=== PATIENT | female | born 1990 | race African-American/Black ===

== ENCOUNTER 2019-04-17 09:14 | Emergency (ER) | payer SELFPAY ==
--- NOTE | 2019-04-17 09:40 | ER Document Report ---
ED Medical Screen (RME) - General Chief Complaint: Head Injury with LOC Stated Complaint: HEAD INJURY/POSSIBLE SEIZURE Time Seen by Provider: 04/17/19 09:36 Mode of Arrival: Ambulatory Information source: Patient Notes: 28-year-old female presented to ED for complaint of history of seizures. She states this morning about an hour ago she had a seizure and fell hitting her head and her left shoulder. She states she ran out of Keppra is why she had a seizure. She does not have any history of any Keppra in the emergency room in the past I have researched that. She does not have her bottle with her. She states she needs an Keppra so she does not have other seizure. I will x-ray the left shoulder and have her examined by another provider Keppra level as well as blood and urine will be completed. I have greeted and performed a rapid initial assessment of this patient. A comprehensive ED assessment and evaluation of the patient, analysis of test results and completion of medical decision making process will be conducted by an additional ED providers. TRAVEL OUTSIDE OF THE [place] IN LAST 30 DAYS: No - Related Data Allergies/Adverse Reactions: erythromycin base [Erythromycin Base] Allergy (Verified 04/17/19 09:30) Home Medications: keppra 500mg BID. iron supplement. B12 injections Past Medical History - Social History Chew tobacco use (# tins/day): No Frequency of alcohol use: Social Drug Abuse: None Family history: CAD, DM, Hypertension, Malignancy Neurological Medical History: Reports: Hx Seizures - distant, no meds, not for years Traumatic Medical History: Reports: Hx Fractures - jaw Past Surgical History: Reports: Hx Section - x2, Hx Oral Surgery - jaw wired shut - Immunizations Immunizations up to date: Yes Hx Diphtheria, Pertussis, Tetanus Vaccination: Yes - 2010
[2019-04-17 10:07] LABS: ABSOLUTE LYMPHOCYTES (AUTO) 1.3 10^3/uL (0.5-4.7); ABSOLUTE MONOCYTES (AUTO) 0.5 10^3/uL (0.1-1.4); ABSOLUTE NEUT (AUTO) 6.4 10^3/uL (1.7-8.2); BASOPHILS % (AUTO) 0.3 % (0-2); EOSINOPHILS % (AUTO) 0.1 % (0-6); HEMATOCRIT 34.6 % (36.0-47.0); HEMOGLOBIN 11.7 g/dL (12.0-15.5); LYMPHOCYTES % (AUTO) 15.9 % (13-45); MEAN CORPUSCULAR HEMOGLOBIN 31.5 pg (27.0-33.4); MEAN CORPUSCULAR HGB CONC 33.9 g/dL (32.0-36.0); MEAN CORPUSCULAR VOLUME 93 fl (80-97); MONOCYTES % (AUTO) 6.5 % (3-13); PLATELET COUNT 314 10^3/uL (150-450); RED BLOOD COUNT 3.72 10^6/uL (3.72-5.28); RED CELL DISTRIBUTION WIDTH 14.2 % (11.5-14.0); SEGMENTED NEUTROPHILS % (AUTO) 77.2 % (42-78); TOTAL CELLS COUNTED % (AUTO) 100 %; WHITE BLOOD COUNT 8.3 10^3/uL (4.0-10.5)
[2019-04-17 10:14] LABS: APPEARANCE,URINE SLIGHTLY-CLOUDY; BILIRUBIN,URINE NEGATIVE (NEGATIVE); COLOR,URINE YELLOW; GLUCOSE, URINE NEGATIVE (NEGATIVE); KETONES,URINE NEGATIVE (NEGATIVE); PROTEIN,URINE NEGATIVE (NEGATIVE); URINE SPECIFIC GRAVITY 1.013; UROBILINOGEN,URINE NEGATIVE mg/dL (<2.0)
[2019-04-17 10:24] LABS: ALKALINE PHOSPHATASE 57 U/L (38-126); ANION GAP 12 (5-19); ASPARTATE AMINO TRANSFERASE 29 U/L (14-36); BILIRUBIN,DIRECT 0.1 mg/dL (0.0-0.4); BILIRUBIN,TOTAL 0.4 mg/dL (0.2-1.3); BLOOD UREA NITROGEN 9 mg/dL (7-20); CALCIUM 10.3 mg/dL (8.4-10.2); CARBON DIOXIDE 26 mmol/L (22-30); CHLORIDE 107 mmol/L (98-107); GLUCOSE 86 mg/dL (75-110); POTASSIUM 4.3 mmol/L (3.6-5.0); TOTAL PROTEIN 8.5 g/dL (6.3-8.2); URINE AMPHETAMINES SCREEN NEGATIVE; URINE BARBITURATES SCREEN NEGATIVE; URINE BENZODIAZEPINES SCREEN NEGATIVE; URINE METHADONE SCREEN NEGATIVE; URINE PHENCYCLIDINE SCREEN NEGATIVE
[2019-04-17 10:26] LABS: URINE COCAINE SCREEN UNCONFIRMED POSITIVE; URINE MARIJUANA (THC) SCREEN UNCONFIRMED POSITIVE
--- NOTE | 2019-04-17 10:30 | ER Document Report ---
ED General - General Mode of Arrival: Ambulatory TRAVEL OUTSIDE OF THE [place] IN LAST 30 DAYS: No - Related Data Home Medications: keppra 500mg BID. iron supplement. B12 injections <FIDELINA SOOD IV - Last Filed: 04/17/19 10:30> <DESIREE APULINO - Last Filed: 04/17/19 12:00> - General Chief Complaint: Head Injury with LOC Stated Complaint: HEAD INJURY/POSSIBLE SEIZURE Time Seen by Provider: 04/17/19 09:36 - Related Data Allergies/Adverse Reactions: erythromycin base [Erythromycin Base] Allergy (Verified 04/17/19 09:30) Past Medical History - General Information source: Patient - Social History Smoking Status: Current Every Day Smoker Chew tobacco use (# tins/day): No Frequency of alcohol use: Social Drug Abuse: None Family History: CAD, DM, Hypertension, Malignancy Patient has suicidal ideation: No Patient has homicidal ideation: No Neurological Medical History: Reports: Hx Seizures - distant, no meds, not for years Traumatic Medical History: Reports: Hx Fractures - jaw Past Surgical History: Reports: Hx Section - x2, Hx Oral Surgery - jaw wired shut - Immunizations Immunizations up to date: Yes Hx Diphtheria, Pertussis, Tetanus Vaccination: Yes - 2010 <FIDELINA SOOD IV - Last Filed: 04/17/19 10:30> Physical Exam - Vital signs Vitals: Temp Pulse BP Pulse Ox 98.9 F 81 132/88 H 100 04/17/19 10:04 04/17/19 10:04 04/17/19 10:04 04/17/19 10:04 Course - Laboratory Result Diagrams: 04/17/19 09:50 04/17/19 09:50 <FIDELINA SOOD IV - Last Filed: 04/17/19 10:30> - Laboratory Result Diagrams: 04/17/19 09:50 04/17/19 09:50 <DESIREE PAULINO - Last Filed: 04/17/19 12:00> - Vital Signs Vital signs: Temp Pulse Resp BP Pulse Ox 98.9 F 81 132/88 H 100 04/17/19 10:04 04/17/19 10:04 04/17/19 10:04 04/17/19 10:04 - Laboratory Laboratory results interpreted by me: 04/17/19 04/17/19 04/17/19 09:50 09:50 09:50 Hgb 11.7 L Hct 34.6 L RDW 14.2 H Calcium 10.3 H Total Protein 8.5 H Leukocyte Esterase Rfl TRACE H Valproic Acid < 10.0 L Discharge <FIDELINA SOOD IV - Last Filed: 04/17/19 10:30> <DESIREE PAULINO - Last Filed: 04/17/19 12:00> - Discharge Clinical Impression: Stress and adjustment reaction, self report of seizure Condition: Fair Disposition: HOME, SELF-CARE Additional Instructions: It is very important that you establish care with a primary care physician locally here since they will be able to refer you to a local neurologist since they will only start medications in someone with verified seizures since it is not a medication without its own risks. To prevent seizures in the meantime it is important you take care of yourself get good rest continue to be social eat well avoid substances and lack of sleep. Referrals: [facility] [Provider Group] - Follow up as needed [facility] ([facility] [Provider Group] - Follow up as needed (If you have insurance you can call this #4 and [facility] doctor to establish a primary care doctor, or use [facility] for low cost healthcare resources.)
--- NOTE | 2019-04-17 11:04 | RADIOLOGY REPORT (SQ) ---
EXAM DESCRIPTION: SHOULDER LEFT 2 OR MORE VIEWS COMPLETED DATE/TIME: 04/17/2019 10:49 am REASON FOR STUDY: fell landed on shoulder COMPARISON: None. NUMBER OF VIEWS: Three views. TECHNIQUE: Internal rotation, external rotation, and Y view images acquired of the left shoulder. LIMITATIONS: None. FINDINGS: MINERALIZATION: Normal. BONES: No acute fracture. No worrisome bone lesions. JOINTS: No dislocation. VISUALIZED LUNGS AND RIBS: No pneumothorax. No rib fracture. SOFT TISSUES: No radiopaque foreign body. OTHER: No other significant finding. IMPRESSION: NEGATIVE STUDY OF THE LEFT SHOULDER. NO RADIOGRAPHIC EVIDENCE OF ACUTE INJURY. TECHNICAL DOCUMENTATION: JOB ID: [id number] [employer]- All Rights Reserved Reading location - IP/workstation name: [email or web address]
[2019-04-17] MEDS ORDERED: ACETAMINOPHEN 325 MG TABLET PO ONE (12:13)
[2019-04-17] MEDS ORDERED: ACETAMINOPHEN 325 MG TABLET ONE (12:14)
[2019-04-17 12:19] VITALS: BP 121/63
== END 2019-04-17 12:19 | disposition home or self-care (01) ==
LOC: ER 09:14
DX: F43.20 Adjustment disorder, unspecified (principal); G40.909 Epilepsy, unspecified, not intractable, without status epilepticus; F17.200 Nicotine dependence, unspecified, uncomplicated; Z88.3 Allergy status to other anti-infective agents
CPT/HCPCS: 36415; 80053; 80164; 80307; 81001; 82962; 84703; 85025; 99284

== ENCOUNTER 2019-05-30 11:12 | Emergency (ER) | payer SELFPAY ==
[2019-05-30] MEDS ORDERED: METOCLOPRAMIDE HCL INJ/PF 10 MG/2 ML SDV IV ONE (11:56)
[2019-05-30] MEDS ORDERED: NORMAL SALINE 1000 ML 1,000 ML IV ONE (11:56)
--- NOTE | 2019-05-30 11:59 | ER Document Report ---
ED Medical Screen (RME) - General Chief Complaint: Vaginal Bleeding Stated Complaint: VOMITING,VAGINAL BLEEDING Time Seen by Provider: 05/30/19 11:52 Notes: Patient is a 28-year-old female G5, P4, who presents emergency department with a chief complaint of vaginal bleeding. She states that there was only a small amount. Patient also states that she has been vomiting and she thought she might have seen blood in her vomit. Patient's last menstrual cycle was March 31 and she is . Exam: Soft, mildly tender mid lower abdomen. I have greeted and performed a rapid initial assessment of this patient. A comprehensive ED assessment and evaluation of the patient, analysis of test results and completion of medical decision making process will be conducted by an additional ED providers. TRAVEL OUTSIDE OF THE [place] IN LAST 30 DAYS: No - Related Data Allergies/Adverse Reactions: erythromycin base [Erythromycin Base] Allergy (Verified 04/17/19 09:30) Home Medications: Gummies Past Medical History - Social History Frequency of alcohol use: None Drug Abuse: None Family history: CAD, DM, Hypertension, Malignancy Neurological Medical History: Reports: Hx Seizures - distant, no meds, not for years Traumatic Medical History: Reports: Hx Fractures - jaw Past Surgical History: Reports: Hx Section - x2, Hx Oral Surgery - jaw wired shut - Immunizations Immunizations up to date: Yes Hx Diphtheria, Pertussis, Tetanus Vaccination: Yes - 2010 Physical Exam - Vital signs Vitals: Temp Pulse Resp BP Pulse Ox 98.7 F 70 16 108/56 L 100 05/30/19 11:22 05/30/19 11:22 05/30/19 11:22 05/30/19 11:22 05/30/19 11:22 Course - Vital Signs Vital signs: Temp Pulse Resp BP Pulse Ox 98.7 F 70 16 108/56 L 100 05/30/19 11:22 05/30/19 11:22 05/30/19 11:22 05/30/19 11:22 05/30/19 11:22
--- NOTE | 2019-05-30 13:07 | RADIOLOGY REPORT (SQ) ---
EXAM DESCRIPTION: U/S OB TRANSVAG W/DOPPLER COMPLETED DATE/TIME: 05/30/2019 12:50 pm REASON FOR STUDY: vaginal bleeding; COMPARISON: None. TECHNIQUE: Transvaginal static and realtime grayscale images acquired of the pelvis. Additional julius cted spectral and color Doppler images recorded. All images stored on PACs. bHCG: Not available CLINICAL DATES: Last menses 03/31/2020 Patient states that she has had 4 positive tests at home LIMITATIONS: None. FINDINGS: An anechoic cystic structure, likely a blighted ovum is present in the uterus, along the l ower uterine segment ventral aspect of the endometrium. This very near a section scar. The re is surrounding increased color flow from decidual reaction. Overall this cystic structure measure s 2 x 1.5 x 1.4 cm in size. No yolk sac or embryo. Findings discussed with Dr. Treadwell in the emerg ency room. Findings likely represent a blighted ovum UTERUS: Uterus is 9.2 x 4.7 x 6 cm in size. CERVICAL LENGTH: 3.1 cm Closed. RIGHT ADNEXA: Normal ovary with normal vascular flow. Right ovary 3.2 x 2.3 x 1.8 cm in size. No ad nexal free fluid.No adnexal masses. LEFT ADNEXA: Normal ovary with normal vascular flow. Left ovary is 3.3 x 1.5 x 2.1 cm in size with a 1.8 cm hemorrhagic cyst, likely the corpus luteum. No adnexal free fluid. No adnexal masses. FREE FLUID: None. OTHER: No other significant finding. IMPRESSION: Probable blighted ovum along the lower uterine segment, very close to or possibly within the section scar Probable left ovary corpus luteum No free pelvic or adnexal fluid Findings discussed with the emergency room attending physician Trimester of : First trimester - 0 to 13 weeks. TECHNICAL DOCUMENTATION: JOB ID: [id number] [employer]- All Rights Reserved rev-10/10 Reading location - IP/workstation name: [email or web address]
[2019-05-30 13:16] LABS: ABSOLUTE LYMPHOCYTES (AUTO) 1.4 10^3/uL (0.5-4.7); ABSOLUTE MONOCYTES (AUTO) 0.4 10^3/uL (0.1-1.4); ABSOLUTE NEUT (AUTO) 3.3 10^3/uL (1.7-8.2); BASOPHILS % (AUTO) 0.7 % (0-2); EOSINOPHILS % (AUTO) 0.6 % (0-6); HEMATOCRIT 35.6 % (36.0-47.0); HEMOGLOBIN 11.8 g/dL (12.0-15.5); LYMPHOCYTES % (AUTO) 26.4 % (13-45); MEAN CORPUSCULAR HGB CONC 33.2 g/dL (32.0-36.0); MEAN CORPUSCULAR VOLUME 93 fl (80-97); MONOCYTES % (AUTO) 7.4 % (3-13); PLATELET COUNT 337 10^3/uL (150-450); RED BLOOD COUNT 3.81 10^6/uL (3.72-5.28); RED CELL DISTRIBUTION WIDTH 15.6 % (11.5-14.0); SEGMENTED NEUTROPHILS % (AUTO) 64.9 % (42-78); TOTAL CELLS COUNTED % (AUTO) 100 %; WHITE BLOOD COUNT 5.2 10^3/uL (4.0-10.5)
[2019-05-30 13:18] LABS: APPEARANCE,URINE CLEAR; BILIRUBIN,URINE NEGATIVE (NEGATIVE); COLOR,URINE YELLOW; GLUCOSE, URINE NEGATIVE (NEGATIVE); KETONES,URINE NEGATIVE (NEGATIVE); LEUKOCYTE ESTERASE,URINE NEGATIVE (NEGATIVE); NITRITE,URINE NEGATIVE (NEGATIVE); PROTEIN,URINE NEGATIVE (NEGATIVE); URINE SPECIFIC GRAVITY 1.008; UROBILINOGEN,URINE NEGATIVE mg/dL (<2.0)
[2019-05-30 13:41] LABS: ALBUMIN 4.7 g/dL (3.5-5.0); ALKALINE PHOSPHATASE 49 U/L (38-126); ANION GAP 11 (5-19); ASPARTATE AMINO TRANSFERASE 23 U/L (14-36); BILIRUBIN,DIRECT 0.2 mg/dL (0.0-0.4); BLOOD UREA NITROGEN 10 mg/dL (7-20); CARBON DIOXIDE 25 mmol/L (22-30); CHLORIDE 102 mmol/L (98-107); GLUCOSE 84 mg/dL (75-110); TOTAL PROTEIN 8.1 g/dL (6.3-8.2)
--- NOTE | 2019-05-30 13:45 | ER Document Report ---
Entered by MACARIO FOURNIER SCRIBE 05/30/19 1307 Acting as scribe for:FIDELINA SOOD IV, MD ED GI/ - General Chief Complaint: Vaginal Bleeding Stated Complaint: VOMITING,VAGINAL BLEEDING Time Seen by Provider: 05/30/19 11:52 Primary Care Provider: GEORGIA ANN MD [ACTIVE STAFF] - Follow up as needed Mode of Arrival: Ambulatory Information source: Patient Notes: This 28-year-old female patient presents to the emergency department today with complaints of vaginal bleeding. Patient mentions that she found out about 3 weeks ago that she was , making her . Patient states she has not had an ultrasound performed yet for this but mentions that she is followed by [facility]. Patient states that she has had nausea and vomiting for the last 2 days which is now well controlled with medication given in triage. Patient states that today prior to arrival she saw a few small streaks of blood in her vomit. Patient states the vaginal bleeding began yesterday and she describes it as spotting. Patient denies any abdominal pain. TRAVEL OUTSIDE OF THE [place] IN LAST 30 DAYS: No - Related Data Allergies/Adverse Reactions: erythromycin base [Erythromycin Base] Allergy (Verified 04/17/19 09:30) Home Medications: Gummies Past Medical History - Social History Smoking Status: Never Smoker Frequency of alcohol use: None Drug Abuse: None Family History: CAD, DM, Hypertension, Malignancy Patient has suicidal ideation: No Patient has homicidal ideation: No Neurological Medical History: Reports: Hx Seizures - distant, no meds, not for years Traumatic Medical History: Reports: Hx Fractures - jaw Past Surgical History: Reports: Hx Section - x2, Hx Oral Surgery - jaw wired shut - Immunizations Immunizations up to date: Yes Hx Diphtheria, Pertussis, Tetanus Vaccination: Yes - 2010 Review of Systems - Review of Systems Constitutional: No symptoms reported EENT: No symptoms reported Cardiovascular: No symptoms reported Respiratory: No symptoms reported Gastrointestinal: See HPI, Nausea, Vomiting, Blood in vomit Genitourinary: No symptoms reported Female Genitourinary: See HPI, , Vaginal bleeding Musculoskeletal: No symptoms reported Skin: No symptoms reported Hematologic/Lymphatic: No symptoms reported Neurological/Psychological: No symptoms reported -: Yes All other systems reviewed and negative Physical Exam - Vital signs Vitals: Temp Pulse Resp BP Pulse Ox 98.7 F 70 16 108/56 L 100 05/30/19 11:22 05/30/19 11:22 05/30/19 11:22 05/30/19 11:22 05/30/19 11:22 - Notes Notes: Physical Exam: General: Alert, appears well. HEENT: Normocephalic. Atraumatic. PERRL. Extraocular movements intact. Oropharynx clear. Neck: Supple. Non-tender. Respiratory: No respiratory distress. Clear and equal breath sounds bilaterally. Cardiovascular: Regular rate and rhythm. Abdominal: Normal Inspection. Non-tender. No distension. Normal Bowel Sounds. Back: No gross abnormalities. Extremities: Moves all four extremities. Upper extremities: Normal inspection. Normal ROM. Lower extremities: Normal inspection. No edema. Normal ROM. Neurological: Normal cognition. AAOx4. Normal speech. Psychological: Normal affect. Normal Mood. Skin: Warm. Dry. Normal color. Course - Re-evaluation Re-evalutation: 05/30/19 13:45 Patient states her nausea and vomiting is currently improved. 05/30/19 15:10 Results of ED MSE discussed with patient. When asked if everything about her ED visit was explained in a manner in which she understood, she answered in the affirmative. Emergency signs and symptoms, reasons to return to the emergency department discussed with patient prior to discharge. - Vital Signs Vital signs: Temp Pulse Resp BP Pulse Ox 98.6 F 53 L 20 111/68 100 05/30/19 15:20 05/30/19 15:20 05/30/19 15:20 05/30/19 15:20 05/30/19 15:20 - Laboratory Result Diagrams: 05/30/19 12:45 05/30/19 12:45 Laboratory results interpreted by me: 05/30/19 05/30/19 05/30/19 12:45 12:45 12:45 Hgb 11.8 L Hct 35.6 L RDW 15.6 H Beta HCG, Quant 8302.70 H Urine Blood SMALL H 05/30/19 15:12 Patient is O+ per records - Diagnostic Test Radiology reviewed: Reports reviewed - Results of ultrasound discussed with Dr. MYLES - Consults Dr. Ann, [facility] [employer] Time consulted: 14:52 Reason for consultation: 05/30/19 15:07 Blighted ovum present on ultrasound in region of scar. Dr. Ann s tated that she wants the patient to come [facility], 05/31/2019, for repeat ultrasound and further management. Consulted provider: follow-up in office Discharge - Discharge Clinical Impression: Blighted ovum Condition: Good Disposition: HOME, SELF-CARE Additional Instructions: Return to the Emergency Department without delay if any worse. HOME CARE INSTRUCTIONS & INFORMATION: Thank you for choosing us for your medical needs. We hope you're satisfied with the care you received. After you leave, you must properly care for your problem and, at the same time, observe its progress. Any condition can change. Some illnesses can change rapidly over hours or days. If your condition worsens, return to the Emergency Department or see your physician promptly. ABOUT YOUR X-RAYS AND EKG'S: If you had an EKG or X-rays taken, they have been read by the Emergency Physician. The X-rays and EKG's will also be read by a Radiologist or Stna within 24 hours. If discrepancies are noted, you w ill be notified by telephone. Please be certain the ED has a correct telephone number & address where you can be reached. Also, realize that some fractures or abnormalities do not show up on initial X-rays. If your symptoms continue, see your physician. ABOUT YOUR LABORATORY TEST: If you had laboratory tests, the results have been reviewed by the Emergency Physician. Some test results (for example cultures) may not be available for several days. You will be contacted if any test result shows you need additional treatment. Please be certain the ED has a correct telephone number and address where you can be reached. ABOUT YOUR MEDICATIONS: You will receive instructions on how to take your medicine on the prescription label you receive. Additional information may be provided by the Pharmacy. If you have questions afterwards, call the ED for clarification or further instructions. Some prescribed medications may cause drowsiness. Do not perform tasks such as driving a car or operating machinery without consulting your Pharmacist. If you feel you need a refill of pain medic ation, your condition will need re-evaluation. Please do not call for a refill of any medication. ABOUT YOUR SIGNATURE: Signature of this document acknowledges to followin. Understanding that you received emergency treatment and that you may be released before al medical problems are known or treated. Please be certain the ED has a correct phone number & address where you can be reached. 2. Acknowledgement that you will arrange for follow-up care as recommended. 3. Authorization for the Emergency Physician to provide information to your follow-up Physician in order to maximize your care. AT ANY TIME, IF YOUR SYMPTOMS CHANGE SIGNIFICANTLY OR WORSEN OR YOU DEVELOP NEW SYMPTOMS, RETURN TO THE EMERGENCY DEPARTMENT IMMEDIATELY FOR RE-EVALUATION. OUR GOAL IS TO PROVIDE EXCELLENT MEDICAL CARE! WE HOPE THAT WE HAVE MET YOUR EXPECTATIONS DURING YOUR EMERGENCY DEPARTMENT VISIT AND THAT YOU FEEL YOU HAVE RECEIVED EXCELLENT CARE! Referrals: GEORGIA ANN MD [ACTIVE STAFF] - Follow up as needed I personally performed the services described in the documentation, reviewed and edited the documentation which was dictated to the scribe in my presence, and it accurately records my words and actions.
[2019-05-30 15:21] VITALS: BP 111/68
== END 2019-05-30 15:21 | disposition home or self-care (01) ==
LOC: ER 11:12
DX: O02.0 Blighted ovum and nonhydatidiform mole (principal); N93.8 Other specified abnormal uterine and vaginal bleeding; R11.10 Vomiting, unspecified
CPT/HCPCS: 99284; 96361; 96374; 36415; 84702; 85025; 80053; 81001; 76817; 93976; J2765; J7030

== ENCOUNTER 2019-06-26 13:37 | Emergency (ER) | payer SELFPAY ==
[2019-06-26 13:43] VITALS: BP 97/56
== END 2019-06-26 14:14 | disposition left against medical advice (07) ==
LOC: ER 13:37
DX: Z53.21 Procedure and treatment not carried out due to patient leaving prior to being seen by health care provider (principal); S99.919A Unspecified injury of unspecified ankle, initial encounter; X58.XXXA Exposure to other specified factors, initial encounter

== ENCOUNTER 2019-07-06 10:23 | Emergency (ER) | payer SELFPAY ==
[2019-07-06] MEDS ORDERED: IBUPROFEN 800 MG TABLET PO ONE (10:41)
--- NOTE | 2019-07-06 10:44 | ER Document Report ---
HPI - HPI Patient complains to provider of: Right wrist pain Time Seen by Provider: 07/06/19 10:38 Onset: Other Onset/Duration: Persistent Quality of pain: Achy Pain Level: 3 Context: 28-year-old female presents emergency department with complaints of right wrist pain. She reports couple days ago she fell off a hover board and landed on her flexed hand. She complains of volar lateral pain. She reports increased pain with movement from pronation to supination. Denies history of fracture to this wrist. Patient is right-handed. She took Motrin the first day but has not taken anything since then. Associated Symptoms: None Exacerbated by: Movement Relieved by: Denies Similar symptoms previously: No Recently seen / treated by doctor: No - REPRODUCTIVE Reproductive: REPORTS: : - MUSCULOSKELETAL Musculoskeletal: REPORTS: Extremity pain Past Medical History - Social History Smoking Status: Never Smoker Frequency of alcohol use: Occasional Drug Abuse: None Family History: CAD, DM, Hypertension, Malignancy Patient has suicidal ideation: No Patient has homicidal ideation: No Neurological Medical History: Reports: Hx Seizures - distant, no meds, not for years Traumatic Medical History: Reports: Hx Fractures - jaw Past Surgical History: Reports: Hx Section - x2, Hx Oral Surgery - jaw wired shut - Immunizations Immunizations up to date: Yes Hx Diphtheria, Pertussis, Tetanus Vaccination: Yes - 2010 Vertical Provider Document - CONSTITUTIONAL Agree With Documented VS: Yes Exam Limitations: No Limitations General Appearance: WD/WN, No Apparent Distress - INFECTION CONTROL TRAVEL OUTSIDE OF THE [place] IN LAST 30 DAYS: No - HEENT HEENT: Atraumatic, Normocephalic - NECK Neck: Supple - RESPIRATORY Respiratory: No Respiratory Distress - CARDIOVASCULAR Cardiovascular: Regular Rate - MUSCULOSKELETAL/EXTREMETIES Musculoskeletal/Extremeties: MAEW, FROM, Tender - Right dorsal wrist little laterally, good radial pulse cap refill less than 2 seconds. No obvious deformity no swelling no erythema no warmth Course - Re-evaluation Re-evalutation: 07/06/19 11:19 Patient instructed on negative x-ray. Instructed Kev wrap Tylenol Motrin for pain follow-up with orthopedics for continued pain. She verbalized understanding to all information. Wrist X-Ray 07/06/19 10:41 IMPRESSION: NEGATIVE STUDY OF THE RIGHT WRIST. NO RADIOGRAPHIC EVIDENCE OF ACUTE INJURY. - Vital Signs Vital signs: Temp Pulse Resp BP Pulse Ox 98.7 F 85 14 103/69 99 07/06/19 10:26 07/06/19 10:26 07/06/19 10:26 07/06/19 10:26 07/06/19 10:26 - Diagnostic Test Radiology reviewed: Image reviewed, Reports reviewed Procedures - Immobilization Right Wrist Pre-Proc Neuro Vasc Exam: Normal Immobilizer type: Kev wrap Performed by: PCT Post-Proc Neuro Vasc Exam: Unchanged from pre-exam Alignment checked and good: Yes Discharge - Discharge Clinical Impression: Right wrist pain Condition: Stable Disposition: HOME, SELF-CARE Instructions: Kev Wrap ([facility]), Ibuprofen (General) ([facility]), Ice & Elevation ([facility]) Additional Instructions: *You have been evaluated for right wrist pain *Your x-ray was negative for any acute fracture *Maintain the Kev wrap for comfort *Rest/Ice/Elevate your wrist *Follow up with orthopedics within 1 week for continued pain *Take medication as prescribed *Return to ED for worsening condition, changes, needs Prescriptions: Ibuprofen [Motrin 800 mg Tablet] 800 mg PO Q8H PRN #20 tab PRN Reason:
--- NOTE | 2019-07-06 11:14 | RADIOLOGY REPORT (SQ) ---
EXAM DESCRIPTION: WRIST RIGHT 3 VIEWS COMPLETED DATE/TIME: 07/06/2019 11:04 am REASON FOR STUDY: fell off hover board wrist pain COMPARISON: None. NUMBER OF VIEWS: Three views. TECHNIQUE: AP, lateral, and oblique radiographic images acquired of the right wrist. LIMITATIONS: None. FINDINGS: MINERALIZATION: Normal. BONES: No acute fracture or dislocation. No worrisome bone lesions. Normal alignment. SOFT TISSUES: No soft tissue swelling. No foreign body. OTHER: No other significant finding. IMPRESSION: NEGATIVE STUDY OF THE RIGHT WRIST. NO RADIOGRAPHIC EVIDENCE OF ACUTE INJURY. TECHNICAL DOCUMENTATION: JOB ID: [id number] [employer]- All Rights Reserved Reading location - IP/workstation name: [email or web address]
[2019-07-06 11:29] VITALS: BP 97/58
== END 2019-07-06 11:33 | disposition home or self-care (01) ==
LOC: ER 10:23
DX: M25.531 Pain in right wrist (principal); V00.181A Fall from other rolling-type pedestrian conveyance, initial encounter
CPT/HCPCS: 99283